=== PATIENT | female | born 1965 | race Two or more races ===

== ENCOUNTER 2024-06-25 17:34 | Inpatient (IN) | payer OTHER ==
[2024-06-25 18:23] VITALS: BMI 21.2
[2024-06-25] MEDS ORDERED: BENZOCAINE/MENTHOL (CHLORASEPTIC ) LOZENGE MM PRN (21:34)
[2024-06-25] MEDS ORDERED: guaiFENesin 600 MG TABLET.ER (FP) PO PRN (21:34)
[2024-06-25] MEDS ORDERED: IBUPROFEN 600 MG TABLET (FP) PO PRN (21:34)
[2024-06-25] MEDS ORDERED: NALOXONE (NARCAN) HCL 4 MG/0.1 ML SPRAY NS PRN (21:34)
[2024-06-25] MEDS ORDERED: BENZONATATE 200 MG CAPSULE PO PRN (21:34)
[2024-06-25] MEDS ORDERED: POLYETHYLENE GLYCOL (HEALTHYLAX) 3350 17 GM PACKET PO PRN (21:34)
[2024-06-25] MEDS ORDERED: LOPERAMIDE HCL 2 MG CAPSULE PO PRN (21:34)
[2024-06-25] MEDS ORDERED: hydrOXYzine PAMOATE 25 MG CAPSULE (FP) PO PRN (21:34)
[2024-06-25] MEDS ORDERED: NICOTINE POLACRILEX 2 MG GUM BUC PRN (21:34)
[2024-06-25] MEDS ORDERED: MAGNESIUM HYDROX 2400MG/30ML ORAL SUSPENSION 30 ML CUP PO PRN (21:34)
[2024-06-25] MEDS ORDERED: IBUPROFEN 400 MG TABLET (FP) PO PRN (21:34)
[2024-06-25] MEDS ORDERED: MAG HYDROX/AL HYDROX/SIMETH 30 ML UNIT-DOSE CUP PO PRN (21:34)
[2024-06-25] MEDS: MELATONIN 5 MG TABLETS PO SCH (23:11)
[2024-06-25] MEDS: cloNIDine HCL 0.1 MG TABLET PO ONE (23:11)
[2024-06-25] MEDS: THIAMINE 100 MG TABLET PO SCH (23:11)
[2024-06-26 09:32] LABS: HEMOGLOBIN 11.7 g/dL (11.2-15.7); MCHC 31.6 g/dl (32.2-35.5); MEAN CELL VOLUME 97.1 fl (79.4-94.8); MEAN PLT VOLUME 10.6 fl (9.4-12.3); PLATELET COUNT # 163 x10^3/uL (182-369); RDW 12.7 % (12.3-16.6)
[2024-06-26 09:33] LABS: CHLORIDE 109 mmol/L (98-107); POTASSIUM 4.4 mmol/L (3.5-5.1); SODIUM 140 mmol/L (136-145)
[2024-06-26] MEDS: TUBERCULIN PPD 5 TU/0.1ML SYRINGE (IN PATIENT USE ONLY) ID ONE ×2 (09:42→12:58)
[2024-06-26 10:11] LABS: ANION GAP 7 mmol/L (4-13); CALCIUM 8.6 mg/dL (8.5-10.1); CO2 24 mmol/L (21-32)
[2024-06-26 10:12] LABS: CREATININE 1.7 mg/dL (0.55-1.3); GLUCOSE,RANDOM 105 mg/dL (74-106); SGOT/AST 24 U/L (15-37)
[2024-06-26 10:13] LABS: BILIRUBIN,TOTAL 0.3 mg/dL (0.2-1); TOT PROT 6.4 g/dl (6.4-8.2)
[2024-06-26 10:15] LABS: ALK PHOS 77 U/L (45-117)
[2024-06-26 10:36] LABS: SGPT/ALT 23 U/L (13-61)
[2024-06-26] MEDS: PRENATAL VITAMINS W/ FOLIC ACID TABLET (FP) PO SCH (10:37)
[2024-06-26] MEDS: NICOTINE 14 MG/24 HOURS TOPICAL PATCH TD SCH (10:37)
[2024-06-26] MEDS ORDERED: TUBERCULIN PPD 5 TU/0.1ML VIAL ID ONE (12:56)
[2024-06-26] MEDS: PATIENT'S OWN MEDICATION (NON-FORMULARY) (Dapagliflozin Propanediol 10 MG Tablet) PO SCH (15:33)
[2024-06-26] MEDS: SPIRONOLACTONE 25 MG TABLET PO SCH (16:23)
[2024-06-26] MEDS: CARVEDILOL 6.25 MG TABLET (FP) PO SCH ×2 (16:34→21:06)
[2024-06-26 18:58] LABS: EPI CELLS 30 /uL (0-25.1); HYALINE CASTS 0 /uL (0-3.1); PH,URINE 6.5 (5.0-8.0); URINE APPEARANCE CLOUDY; URINE BACTERIA 64 /uL (0-1359); URINE BILIRUBIN NEGATIVE (NEGATIVE); URINE COLOR YELLOW; URINE GLUCOSE (UA) NEGATIVE (NEGATIVE); URINE KETONE NEGATIVE (NEGATIVE); URINE LEUK ESTERASE 3+ (NEGATIVE); URINE NITRITE NEGATIVE (NEGATIVE); URINE PROTEIN 1+ (NEGATIVE); URINE RBC 16 /uL (0-23.9); URINE UROBILINOGEN 0.2 mg/dL (0.2-1.0); URINE WBC 2122 /uL (0-25.8)
[2024-06-26] MEDS: SACUBITRIL/VALSARTAN 24 MG-26 MG TABLET PO SCH (21:06)
[2024-06-26] MEDS: ARIPiprazole 2 MG TABLET PO SCH (21:06)
[2024-06-27] MEDS: FOLIC ACID 1 MG TABLET (FP) PO SCH (10:25)
[2024-06-27] MEDS: FUROSEMIDE 40 MG TABLET (FP) PO SCH (10:25)
[2024-06-27] MEDS: GABAPENTIN 100 MG CAPSULE PO PRN (18:56)
[2024-06-27] MEDS: NITROFURANTOIN MACROCRYSTAL 50 MG CAPSULE (FP) PO SCH (23:32)
[2024-06-28] MEDS: ACETAMINOPHEN 325 MG TABLET (FP) PO PRN (10:32)
[2024-06-29 09:52] LABS: POTASSIUM 5.5 mmol/L (3.5-5.1)
[2024-06-29 10:14] LABS: ALBUMIN 3.2 g/dl (3.4-5.0); CALCIUM 9.5 mg/dL (8.5-10.1)
[2024-06-29 10:15] LABS: BLOOD UREA NITROGEN 35.6 mg/dL (7-18)
[2024-06-29 10:18] LABS: CREATININE 1.8 mg/dL (0.55-1.3); PHOSPHOROUS 5.6 mg/dL (2.5-4.9)
[2024-06-29] MEDS: SODIUM ZIRCONIUM CYCLOSILICATE (LOKELMA) 5 GM PACKET PO ONE (14:45)
[2024-06-29] MEDS ORDERED: NITROFURANTOIN MONOHYD/M-CRYST 100 MG CAPSULE PO SCH (22:00)
[2024-06-30 14:32] LABS: CHLORIDE 102 mmol/L (98-107); POTASSIUM 4.5 mmol/L (3.5-5.1); SODIUM 138 mmol/L (136-145)
[2024-06-30 14:34] LABS: BLOOD UREA NITROGEN 37.7 mg/dL (7-18); CALCIUM 9.5 mg/dL (8.5-10.1)
[2024-06-30 14:35] LABS: ANION GAP 5 mmol/L (4-13); CO2 31 mmol/L (21-32)
[2024-06-30 14:38] LABS: SGOT/AST 20 U/L (15-37); SGPT/ALT 21 U/L (13-61)
[2024-06-30 14:39] LABS: BILIRUBIN,TOTAL 0.2 mg/dL (0.2-1); TOT PROT 7.7 g/dl (6.4-8.2)
[2024-06-30 14:41] LABS: ALK PHOS 83 U/L (45-117)
[2024-06-30 14:48] LABS: ALBUMIN 3.5 g/dl (3.4-5.0); GLUCOSE,RANDOM 49 mg/dL (74-106)
[2024-07-01 07:03] VITALS: RESP 16; TEMP 97.3
[2024-07-01 09:38] VITALS: BP 125/73; PULSE 76
== END 2024-07-01 11:55 | disposition home or self-care (01) | DRG 772 ==
LOC: YASAS 17:34 → Y5N 22:08
PROVIDERS: ADMIT Psychiatry & Neurology Pain Medicine; ATTEND Psychiatry & Neurology Pain Medicine
PROC: HZ42ZZZ Group Counseling for Substance Abuse Treatment, Cognitive-Behavioral (ICD-10-PCS; principal; 2024-06-25)
DX: F10.20 Alcohol dependence, uncomplicated (principal); F14.20 Cocaine dependence, uncomplicated; F12.20 Cannabis dependence, uncomplicated; F17.210 Nicotine dependence, cigarettes, uncomplicated; F19.280 Other psychoactive substance dependence with psychoactive substance-induced anxiety disorder; E87.5 Hyperkalemia; I11.0 Hypertensive heart disease with heart failure; I50.9 Heart failure, unspecified; I12.9 Hypertensive chronic kidney disease with stage 1 through stage 4 chronic kidney disease, or unspecified chronic kidney disease; N18.9 Chronic kidney disease, unspecified; J44.9 Chronic obstructive pulmonary disease, unspecified; N39.0 Urinary tract infection, site not specified; N93.9 Abnormal uterine and vaginal bleeding, unspecified
CPT/HCPCS: 0241U-QW; 36415; 71045-TC-FY; 80048; 80053; 80069; 80305; 80307; 81003; 82962; 85027; 86593; 86780; 87491; 87591; 87661; 87811; 93005; 93010